=== PATIENT | male | born 1945 | race Caucasian/White ===

== ENCOUNTER 2019-01-20 09:52 | Inpatient (IN) | payer OTHER ==
[2019-01-20 10:20] LABS: AADO2 Venous 90.9 mmHg; MODE ROOM AIR; MetHgb Venous 0.7 %; Site VENOUS LINE; Venous COHb 0.4 %; Venous Fraction OxyHgb 29.6 %; Venous Oxygen Sat 29.9 mmHG (55.0-75.0)
[2019-01-20] MEDS: SOD CHLORIDE 0.9% 1,000 ML IV ×3 (10:20→18:40)
[2019-01-20 10:22] LABS: ADD MAN DIFF? NO
[2019-01-20 10:23] LABS: ABNORMAL IP MESSAGE 1; BASOPHIL # 0.1 10^3/ul (0.0-0.1); BASOPHILS % 0.2 % (0.0-2.0); HEMATOCRIT 44.5 % (42.0-52.0); HEMOGLOBIN 14.7 g/dl (14.0-18.0); LYMPHOCYTES # 0.3 10^3/ul (0.8-2.9); LYMPHOCYTES % 1.3 % (15.0-51.0); MEAN CORPUSCULAR HEMOGLOBIN 28.9 pg (29.0-33.0); MEAN CORPUSCULAR VOLUME 87.6 fl (82.0-101.0); MEAN PLATELET VOLUME 12.7 fl (7.4-10.4); MONOCYTE # 0.5 10^3/ul (0.3-0.9); MONOCYTES % 2.4 % (0.0-11.0); NEUTROPHIL # 19.5 10^3/ul (1.6-7.5); NEUTROPHILS % 95.4 % (39.0-77.0); PLATELET COUNT 146 10^3/UL (140-415); POSITIVE DIFF @See below; RED BLOOD COUNT 5.08 10^6/ul (4.70-6.10); RED CELL DISTRIBUTION WIDTH 13.8 % (11.5-14.5)
[2019-01-20 10:23] LABS: WHITE BLOOD COUNT 20.5 10^3/ul (4.8-10.8)
[2019-01-20 10:42] LABS: ANION GAP 23 (5-13); BLOOD UREA NITROGEN 46 mg/dl (7-20); CALCIUM 8.8 mg/dl (8.4-10.2); CARBON DIOXIDE 12 mmol/L (21-31); CHLORIDE 99 mmol/L (97-110); CREATININE 2.94 mg/dl (0.61-1.24); MAGNESIUM 2.3 mg/dl (1.7-2.5); PHOSPHORUS 6.4 mg/dl (2.5-4.9); POTASSIUM 5.3 mmol/L (3.5-5.1); SODIUM 134 mmol/L (135-144)
[2019-01-20 10:55] LABS: GLUCOSE 840 mg/dl (70-220)
[2019-01-20] MEDS ORDERED: D10/0.45% NACL + KCL 40 MEQ 1,000 ML IV (11:03)
[2019-01-20] MEDS ORDERED: NS + KCL 40 MEQ 1,000 ML IV (11:03)
[2019-01-20] MEDS ORDERED: DEXTROSE 10%/0.45% NACL 1,000 ML IV (11:03)
[2019-01-20 11:17] LABS: HEMOGLOBIN A1C 10.5 % (0-5.9)
[2019-01-20 11:22] LABS: ADD UMIC YES; UR ASCORBIC ACID NEGATIVE (NEGATIVE); UR BACTERIA FEW /HPF (NONE SEEN); UR BILIRUBIN (Dip) NEGATIVE (NEGATIVE); UR BLOOD (Dip) 2+ mg/dL (NEGATIVE); UR CLARITY CLOUDY (CLEAR); UR COLOR YELLOW (YELLOW); UR GLUCOSE (Dip) 3+ mg/dL (NEGATIVE); UR GRANULAR CAST FEW /HPF (NONE SEEN); UR KETONES (Dip) 1+ mg/dL (NEGATIVE); UR LEUKOCYTE ESTERASE (Dip) TRACE Leu/ul (NEGATIVE); UR NITRITE (Dip) NEGATIVE (NEGATIVE); UR RBC 1 /HPF (0-5); UR SPECIFIC GRAVITY (Dip) 1.016 (1.003-1.030); UR TOTAL PROTEIN (Dip) 1+ mg/dl (NEGATIVE); UR UROBILINOGEN (Dip) NEGATIVE (NEGATIVE); UR WBC 36 /HPF (0-5)
[2019-01-20] MEDS: LACTATED RINGER'S 1,000 ML IV (11:27)
[2019-01-20] MEDS ORDERED: DEXTROSE 50% 50 ML SYRINGE IV ×2 (11:30)
[2019-01-20] MEDS: INSULIN REGULAR, HUMAN 100 UNIT in SOD CHLORIDE 0.9% 100 ML IV ×2 (13:15→21:59)
[2019-01-20 13:18] LABS: MODE ROOM AIR; MetHgb Venous 0.1 %; Sample Type Blood venous; Site VENOUS LINE; Venous COHb 0.5 %; Venous Fraction OxyHgb 79.5 %; Venous Total Hemglobin 13.5 g/dl
[2019-01-20] MEDS: NS + KCL 30 MEQ 1,000 ML IV ×2 (13:20→20:42)
[2019-01-20 13:54] LABS: ANION GAP 19 (5-13); BLOOD UREA NITROGEN 49 mg/dl (7-20); CALCIUM 8.5 mg/dl (8.4-10.2); CARBON DIOXIDE 14 mmol/L (21-31); CHLORIDE 104 mmol/L (97-110); CREATININE 2.69 mg/dl (0.61-1.24); MAGNESIUM 2.3 mg/dl (1.7-2.5); POTASSIUM 5.8 mmol/L (3.5-5.1); SODIUM 137 mmol/L (135-144)
[2019-01-20 14:04] LABS: GLUCOSE 806 mg/dl (70-220)
[2019-01-20] MEDS ORDERED: NACL 0.9% 3 ML SYG IV (14:30)
[2019-01-20] MEDS ORDERED: ONDANSETRON 4 MG INJ IV (14:30)
[2019-01-20] MEDS ORDERED: ALBUTEROL HFA 8 GM INHALER INH (14:30)
[2019-01-20] MEDS ORDERED: ACETAMINOPHEN 325 MG TAB PO (14:30)
[2019-01-20] MEDS: METOPROLOL 5 MG INJ IV ×2 (14:32→21:01)
[2019-01-20 15:25] LABS: MODE NASAL CANNULA; MetHgb Venous 0.5 %; Sample Type Blood venous; Site VENOUS LINE; Venous COHb 0.6 %; Venous Fraction OxyHgb 32.7 %; Venous Oxygen Sat 33.1 mmHG (55.0-75.0); Venous Total Hemglobin 14.3 g/dl
[2019-01-20] MEDS: PIPER-TAZO 3.375 GM IV (PMX) 100 ML IVPB ×2 (15:31→21:51)
[2019-01-20] MEDS: NICOTINE (21 MG/24 HR) PATCH TRANSDERM (15:31)
[2019-01-20 15:55] LABS: ANION GAP 16 (5-13); BLOOD UREA NITROGEN 52 mg/dl (7-20); CALCIUM 8.6 mg/dl (8.4-10.2); CARBON DIOXIDE 19 mmol/L (21-31); CHLORIDE 106 mmol/L (97-110); CREATININE 2.67 mg/dl (0.61-1.24); MAGNESIUM 2.5 mg/dl (1.7-2.5); PHOSPHORUS 4.7 mg/dl (2.5-4.9); POTASSIUM 5.4 mmol/L (3.5-5.1); SODIUM 141 mmol/L (135-144)
[2019-01-20 16:10] LABS: GLUCOSE 685 mg/dl (70-220)
[2019-01-20 19:46] LABS: MODE ROOM AIR; MetHgb Venous 0.2 %; Sample Type Blood venous; Site VENOUS LINE; Venous COHb 1.8 %; Venous Fraction OxyHgb 64.7 %; Venous Total Hemglobin 15.4 g/dl
[2019-01-20 20:01] LABS: ANION GAP 9 (5-13); BLOOD UREA NITROGEN 55 mg/dl (7-20); CALCIUM 8.5 mg/dl (8.4-10.2); CARBON DIOXIDE 21 mmol/L (21-31); CHLORIDE 112 mmol/L (97-110); CREATININE 2.55 mg/dl (0.61-1.24); GLUCOSE 383 mg/dl (70-220); MAGNESIUM 2.6 mg/dl (1.7-2.5); PHOSPHORUS 3.1 mg/dl (2.5-4.9); POTASSIUM 4.3 mmol/L (3.5-5.1); SODIUM 142 mmol/L (135-144)
[2019-01-20 20:41] LABS: ADD UMIC YES; UR ASCORBIC ACID NEGATIVE (NEGATIVE); UR BACTERIA FEW /HPF (NONE SEEN); UR BILIRUBIN (Dip) NEGATIVE (NEGATIVE); UR BLOOD (Dip) 2+ mg/dL (NEGATIVE); UR CLARITY CLOUDY (CLEAR); UR COLOR YELLOW (YELLOW); UR GLUCOSE (Dip) 3+ mg/dL (NEGATIVE); UR GRANULAR CAST FEW /HPF (NONE SEEN); UR KETONES (Dip) NEGATIVE (NEGATIVE); UR LEUKOCYTE ESTERASE (Dip) 3+ Leu/ul (NEGATIVE); UR NITRITE (Dip) NEGATIVE (NEGATIVE); UR RBC 16 /HPF (0-5); UR SPECIFIC GRAVITY (Dip) 1.014 (1.003-1.030); UR TOTAL PROTEIN (Dip) 1+ mg/dl (NEGATIVE); UR UROBILINOGEN (Dip) NEGATIVE (NEGATIVE); UR WBC > 182 /HPF (0-5)
[2019-01-20] MEDS: D10/0.45% NACL + KCL 30 MEQ 1,000 ML IV (20:42)
[2019-01-20] MEDS: TAMSULOSIN (SR) 0.4 MG CAP PO (20:58)
[2019-01-20] MEDS: ATORVASTATIN 40 MG TAB PO (20:58)
[2019-01-20] MEDS: CHOLECALCIFEROL 1,000 UNIT TAB PO (20:58)
[2019-01-20] MEDS: APIXABAN 5 MG TABLET PO (20:58)
[2019-01-20 23:24] LABS: MODE ROOM AIR; MetHgb Venous 0.2 %; Sample Type Blood venous; Site VENOUS LINE; Venous COHb 0.6 %; Venous Fraction OxyHgb 88.4 %; Venous Oxygen Sat 89.1 mmHG (55.0-75.0); Venous Total Hemglobin 14.5 g/dl
[2019-01-20 23:51] LABS: ANION GAP 10 (5-13); BLOOD UREA NITROGEN 51 mg/dl (7-20); CALCIUM 8.5 mg/dl (8.4-10.2); CARBON DIOXIDE 21 mmol/L (21-31); CHLORIDE 114 mmol/L (97-110); CREATININE 2.37 mg/dl (0.61-1.24); GLUCOSE 260 mg/dl (70-220); MAGNESIUM 2.5 mg/dl (1.7-2.5); PHOSPHORUS 2.7 mg/dl (2.5-4.9); POTASSIUM 4.1 mmol/L (3.5-5.1); SODIUM 145 mmol/L (135-144)
[2019-01-21] MEDS ORDERED: DEXTROSE 50% 50 ML SYRINGE IV ×2 (00:30)
[2019-01-21] MEDS ORDERED: GLUCOSE GEL 15 GRAM TUBE BUCCAL (00:30)
[2019-01-21] MEDS ORDERED: GLUCOSE GEL 15 GRAM TUBE PO ×2 (00:30)
[2019-01-21] MEDS ORDERED: GLUCAGON 1 MG INJ IM (00:30)
[2019-01-21] MEDS: DILTIAZEM 25 MG INJ IV ×2 (00:36→20:23)
[2019-01-21] MEDS: INSULIN GLARGINE [LANTus] (100 UNITS/ML) SYG SC ×2 (00:37→20:36)
[2019-01-21] MEDS: METOPROLOL 5 MG INJ IV ×2 (03:16→19:34)
[2019-01-21 03:48] LABS: ADD MAN DIFF? NO
[2019-01-21 03:54] LABS: Allen Test ACCEPTAB; MODE ROOM AIR; MetHgb Venous 0.1 %; Sample Type Blood venous; Site VENOUS LINE; Venous COHb 1.5 %; Venous Fraction OxyHgb 60.7 %; Venous Oxygen Sat 61.7 mmHG (55.0-75.0); Venous Total Hemglobin 15.5 g/dl
[2019-01-21 04:11] LABS: ALANINE AMINOTRANSFERASE 25 IU/L (13-69); ALBUMIN 3.3 g/dl (3.3-4.9); ALBUMIN/GLOBULIN RATIO 1.06; ALKALINE PHOSPHATASE 85 IU/L (42-121); ANION GAP 11 (5-13); ASPARTATE AMINO TRANSFERASE 24 IU/L (15-46); BILIRUBIN,INDIRECT 0.6 mg/dl (0-1.1); BILIRUBIN,TOTAL 0.6 mg/dl (0.2-1.3); BLOOD UREA NITROGEN 51 mg/dl (7-20); CALCIUM 8.5 mg/dl (8.4-10.2); CARBON DIOXIDE 17 mmol/L (21-31); CHLORIDE 118 mmol/L (97-110); CREATININE 2.36 mg/dl (0.61-1.24); GLUCOSE 217 mg/dl (70-220); POTASSIUM 4.4 mmol/L (3.5-5.1); SODIUM 146 mmol/L (135-144); TOTAL PROTEIN 6.4 g/dl (6.1-8.1)
[2019-01-21 04:12] LABS: ANION GAP 10 (5-13); BLOOD UREA NITROGEN 50 mg/dl (7-20); CALCIUM 8.3 mg/dl (8.4-10.2); CARBON DIOXIDE 17 mmol/L (21-31); CHLORIDE 119 mmol/L (97-110); CREATININE 2.22 mg/dl (0.61-1.24); GLUCOSE 211 mg/dl (70-220); MAGNESIUM 2.5 mg/dl (1.7-2.5); PHOSPHORUS 2.3 mg/dl (2.5-4.9); POTASSIUM 4.6 mmol/L (3.5-5.1); SODIUM 146 mmol/L (135-144)
[2019-01-21 04:29] LABS: ABNORMAL IP MESSAGE 1; BASOPHILS % 0.3 % (0.0-2.0); EOSINOPHILS % 0.2 % (0.0-7.0); HEMATOCRIT 43.9 % (42.0-52.0); HEMOGLOBIN 14.6 g/dl (14.0-18.0); LYMPHOCYTES # 0.5 10^3/ul (0.8-2.9); LYMPHOCYTES % 3.7 % (15.0-51.0); MEAN CORPUSCULAR HGB CONC 33.3 g/dl (32.0-37.0); MEAN CORPUSCULAR VOLUME 87.1 fl (82.0-101.0); MEAN PLATELET VOLUME 12.3 fl (7.4-10.4); MONOCYTE # 0.8 10^3/ul (0.3-0.9); MONOCYTES % 6.1 % (0.0-11.0); NEUTROPHIL # 11.8 10^3/ul (1.6-7.5); NEUTROPHILS % 89.2 % (39.0-77.0); PLATELET COUNT 127 10^3/UL (140-415); POSITIVE DIFF @See below; RED BLOOD COUNT 5.04 10^6/ul (4.70-6.10); RED CELL DISTRIBUTION WIDTH 14.2 % (11.5-14.5)
[2019-01-21 04:29] LABS: WHITE BLOOD COUNT 13.2 10^3/ul (4.8-10.8)
[2019-01-21 04:41] LABS: HEMOGLOBIN A1C 10.7 % (0-5.9)
[2019-01-21] MEDS: PIPER-TAZO 3.375 GM IV (PMX) 100 ML IVPB ×3 (05:11→22:14)
[2019-01-21] MEDS: METOPROLOL 100 MG TAB PO ×2 (05:12→09:40)
[2019-01-21] MEDS: INSULIN ASPART [NOVOLOG] 3 ML PEN SC ×7 (05:40→21:39)
[2019-01-21] MEDS: ACCU-CHEK XX (06:33)
[2019-01-21] MEDS: AMIODARONE 900 MG in DEXTROSE 5% 482 ML IV ×2 (06:44→23:16)
[2019-01-21] MEDS: NICOTINE (21 MG/24 HR) PATCH TRANSDERM (09:00)
[2019-01-21] MEDS: APIXABAN 5 MG TABLET PO ×2 (09:41→20:24)
[2019-01-21] MEDS: LOPERAMIDE 2 MG CAP PO ×2 (12:18→13:20)
[2019-01-21] MEDS ORDERED: VANCOMYCIN IV PER PHARMACY XX (16:00)
[2019-01-21] MEDS: VANCOMYCIN HCL 2 GM in SOD CHLORIDE 0.9% 500 ML IVPB (17:10)
[2019-01-21] MEDS: CHOLECALCIFEROL 1,000 UNIT TAB PO (20:24)
[2019-01-21] MEDS: TAMSULOSIN (SR) 0.4 MG CAP PO (20:24)
[2019-01-21] MEDS: ATORVASTATIN 40 MG TAB PO (20:24)
[2019-01-22] MEDS: ACCU-CHEK XX (02:48)
[2019-01-22] MEDS: PIPER-TAZO 3.375 GM IV (PMX) 100 ML IVPB ×3 (05:39→21:37)
[2019-01-22 07:46] LABS: CREATININE 2.22 mg/dl (0.61-1.24)
[2019-01-22 07:46] LABS: BLOOD UREA NITROGEN 49 mg/dl (7-20)
[2019-01-22] MEDS: INSULIN ASPART [NOVOLOG] 3 ML PEN SC ×7 (08:25→20:14)
[2019-01-22] MEDS: NICOTINE (21 MG/24 HR) PATCH TRANSDERM (08:32)
[2019-01-22] MEDS: APIXABAN 5 MG TABLET PO ×2 (08:32→20:10)
[2019-01-22] MEDS: METOPROLOL 100 MG TAB PO ×2 (09:25→21:37)
[2019-01-22 10:34] LABS: ADD MAN DIFF? NO
[2019-01-22 10:35] LABS: WHITE BLOOD COUNT 14.8 10^3/ul (4.8-10.8)
[2019-01-22 10:35] LABS: ABNORMAL IP MESSAGE 1; BASOPHILS % 0.2 % (0.0-2.0); EOSINOPHILS % 0.1 % (0.0-7.0); HEMATOCRIT 40.6 % (42.0-52.0); HEMOGLOBIN 13.6 g/dl (14.0-18.0); LYMPHOCYTES # 0.5 10^3/ul (0.8-2.9); MEAN CORPUSCULAR HEMOGLOBIN 28.9 pg (29.0-33.0); MEAN CORPUSCULAR HGB CONC 33.5 g/dl (32.0-37.0); MEAN CORPUSCULAR VOLUME 86.4 fl (82.0-101.0); MEAN PLATELET VOLUME 11.8 fl (7.4-10.4); MONOCYTE # 0.9 10^3/ul (0.3-0.9); MONOCYTES % 5.8 % (0.0-11.0); NEUTROPHIL # 13.3 10^3/ul (1.6-7.5); NEUTROPHILS % 90.2 % (39.0-77.0); PLATELET COUNT 92 10^3/UL (140-415); POSITIVE DIFF @See below; RED CELL DISTRIBUTION WIDTH 14.4 % (11.5-14.5)
[2019-01-22 10:53] LABS: ALANINE AMINOTRANSFERASE 35 IU/L (13-69); ALBUMIN 2.8 g/dl (3.3-4.9); ALBUMIN/GLOBULIN RATIO 1.03; ALKALINE PHOSPHATASE 88 IU/L (42-121); ANION GAP 10 (5-13); ASPARTATE AMINO TRANSFERASE 28 IU/L (15-46); BLOOD UREA NITROGEN 48 mg/dl (7-20); CALCIUM 8.4 mg/dl (8.4-10.2); CARBON DIOXIDE 21 mmol/L (21-31); CHLORIDE 107 mmol/L (97-110); GLUCOSE 339 mg/dl (70-220); MAGNESIUM 2.2 mg/dl (1.7-2.5); PHOSPHORUS 3.1 mg/dl (2.5-4.9); POTASSIUM 4.3 mmol/L (3.5-5.1); SODIUM 138 mmol/L (135-144); TOTAL PROTEIN 5.5 g/dl (6.1-8.1)
[2019-01-22] MEDS: DILTIAZEM (CD) 180 MG CAP PO ×2 (13:29→16:53)
[2019-01-22] MEDS: METOPROLOL 5 MG INJ IV (15:40)
[2019-01-22] MEDS: CHOLECALCIFEROL 1,000 UNIT TAB PO (20:09)
[2019-01-22] MEDS: ATORVASTATIN 40 MG TAB PO (20:10)
[2019-01-22] MEDS: TAMSULOSIN (SR) 0.4 MG CAP PO (20:10)
[2019-01-22] MEDS: INSULIN GLARGINE [LANTus] (100 UNITS/ML) SYG SC (20:14)
[2019-01-23] MEDS: LOPERAMIDE 2 MG CAP PO ×2 (00:22→20:53)
[2019-01-23] MEDS: ACCU-CHEK XX (03:00)
[2019-01-23] MEDS: PIPER-TAZO 3.375 GM IV (PMX) 100 ML IVPB ×3 (05:07→23:39)
[2019-01-23] MEDS: VANCOMYCIN HCL 1.25 GM in SOD CHLORIDE 0.9% 250 ML IVPB (05:09)
[2019-01-23 05:43] LABS: HEMATOCRIT 40.3 % (42.0-52.0); HEMOGLOBIN 13.8 g/dl (14.0-18.0); MEAN CORPUSCULAR HEMOGLOBIN 28.6 pg (29.0-33.0); MEAN CORPUSCULAR HGB CONC 34.2 g/dl (32.0-37.0); MEAN CORPUSCULAR VOLUME 83.6 fl (82.0-101.0); MEAN PLATELET VOLUME 12.5 fl (7.4-10.4); PLATELET COUNT 111 10^3/UL (140-415); RED BLOOD COUNT 4.82 10^6/ul (4.70-6.10); RED CELL DISTRIBUTION WIDTH 14.5 % (11.5-14.5)
[2019-01-23 05:43] LABS: WHITE BLOOD COUNT 15.8 10^3/ul (4.8-10.8)
[2019-01-23 05:44] LABS: POSITIVE DIFF @See below
[2019-01-23 06:07] LABS: ANION GAP 10 (5-13); BLOOD UREA NITROGEN 46 mg/dl (7-20); CALCIUM 8.4 mg/dl (8.4-10.2); CARBON DIOXIDE 18 mmol/L (21-31); CHLORIDE 112 mmol/L (97-110); CREATININE 2.37 mg/dl (0.61-1.24); GLUCOSE 235 mg/dl (70-220); MAGNESIUM 2.3 mg/dl (1.7-2.5); PHOSPHORUS 3.6 mg/dl (2.5-4.9); POTASSIUM 4.2 mmol/L (3.5-5.1); SODIUM 140 mmol/L (135-144)
[2019-01-23 06:16] LABS: ADD MAN DIFF? YES
[2019-01-23] MEDS: APIXABAN 5 MG TABLET PO ×2 (08:09→20:52)
[2019-01-23] MEDS: METOPROLOL (XL) 100 MG TAB PO (08:10)
[2019-01-23] MEDS: DILTIAZEM (CD) 180 MG CAP PO (08:10)
[2019-01-23] MEDS: NICOTINE (21 MG/24 HR) PATCH TRANSDERM (08:14)
[2019-01-23] MEDS: INSULIN ASPART [NOVOLOG] 3 ML PEN SC ×7 (08:28→20:56)
[2019-01-23 11:23] LABS: ANISOCYTOSIS 2+ (0-0); BAND NEUTROPHILS #M 0.7 10^3/ul (0.0-0.6); BAND NEUTROPHILS % (M) 5 % (0-4); BURR CELLS 3+ (0-0); GIANT THROMBO% (M) 2 % (0-0); LYMPHOCYTES #M 0.7 10^3/ul (0.8-2.9); LYMPHOCYTES % (M) 5 % (15-51); MICROCYTOSIS 1+ (0-0); MONOCYTE #M 0.7 10^3/ul (0.3-0.9); MONOCYTES % (M) 5 % (0-11); PLATELET ESTIMATE DECREASED; POIKILOCYTOSIS 3+ (0-0); POLYCHROMASIA 3+ (0-0); REACTIVE LYMPHOCYTES #M 0.6 10^3/ul (0.0-0.0); REACTIVE LYMPHOCYTES% (M) 4 % (0-0); SEG NEUT #M 12.9 10^3/ul (1.6-7.5); SEGMENTED NEUTROPHILS (M) % 81 % (39-77); SMUDGE%M 4 % (0-0); TEAR DROP CELLS 1+ (0-0)
[2019-01-23] MEDS: TAMSULOSIN (SR) 0.4 MG CAP PO (20:52)
[2019-01-23] MEDS: CHOLECALCIFEROL 1,000 UNIT TAB PO (20:53)
[2019-01-23] MEDS: ATORVASTATIN 40 MG TAB PO (20:53)
[2019-01-23] MEDS: INSULIN GLARGINE [LANTus] (100 UNITS/ML) SYG SC (20:55)
[2019-01-23] MEDS ORDERED: ACETAMINOPHEN 650 MG SUPP PR (21:49)
[2019-01-23] MEDS ORDERED: DILTIAZEM 25 MG INJ (21:50)
[2019-01-23] MEDS ORDERED: MAGNESIUM SULFATE 2 GM/50 ML 50 ML (21:54)
[2019-01-23] MEDS: SOD CHLORIDE 0.9% 1,000 ML IV (22:04)
[2019-01-23] MEDS: MAGNESIUM SULFATE 2 GM/50 ML 50 ML IVPB (22:05)
[2019-01-23] MEDS: LORAZEPAM 2 MG INJ IV (22:06)
[2019-01-23] MEDS: ACETAMINOPHEN 650 MG SUPP PR (22:30)
[2019-01-23] MEDS: DILTIAZEM 25 MG INJ IV (22:30)
[2019-01-24] MEDS: ACCU-CHEK XX (01:25)
[2019-01-24] MEDS: LOPERAMIDE 2 MG CAP PO (04:37)
[2019-01-24] MEDS: PIPER-TAZO 3.375 GM IV (PMX) 100 ML IVPB ×2 (05:32→13:15)
[2019-01-24 06:14] LABS: WHITE BLOOD COUNT 21.7 10^3/ul (4.8-10.8)
[2019-01-24 06:14] LABS: HEMATOCRIT 36.6 % (42.0-52.0); HEMOGLOBIN 12.6 g/dl (14.0-18.0); MEAN CORPUSCULAR HEMOGLOBIN 28.6 pg (29.0-33.0); MEAN CORPUSCULAR HGB CONC 34.4 g/dl (32.0-37.0); MEAN CORPUSCULAR VOLUME 83.2 fl (82.0-101.0); MEAN PLATELET VOLUME 12.2 fl (7.4-10.4); PLATELET COUNT 113 10^3/UL (140-415); POSITIVE DIFF @See below
[2019-01-24 06:22] LABS: ADD MAN DIFF? YES
[2019-01-24 06:34] LABS: ANION GAP 8 (5-13); BLOOD UREA NITROGEN 42 mg/dl (7-20); CALCIUM 7.8 mg/dl (8.4-10.2); CARBON DIOXIDE 19 mmol/L (21-31); CHLORIDE 112 mmol/L (97-110); CREATININE 2.53 mg/dl (0.61-1.24); GLUCOSE 129 mg/dl (70-220); SODIUM 139 mmol/L (135-144)
[2019-01-24] MEDS: INSULIN ASPART [NOVOLOG] 3 ML PEN SC ×7 (07:54→20:29)
[2019-01-24] MEDS: DILTIAZEM (CD) 180 MG CAP PO ×2 (09:00→11:57)
[2019-01-24] MEDS: METOPROLOL (XL) 100 MG TAB PO ×2 (09:00→11:56)
[2019-01-24] MEDS: APIXABAN 5 MG TABLET PO ×2 (09:45→20:12)
[2019-01-24] MEDS: NICOTINE (21 MG/24 HR) PATCH TRANSDERM (09:46)
[2019-01-24 11:50] LABS: BAND NEUTROPHILS #M 1.7 10^3/ul (0.0-0.6); BAND NEUTROPHILS % (M) 8 % (0-4); BASOPHIL #M 0.4 10^3/ul (0.0-0.0); BASOPHILS % (M) 2 % (0-2); BURR CELLS 1+ (0-0); GIANT THROMBO% (M) 6 % (0-0); LYMPHOCYTES #M 0.6 10^3/ul (0.8-2.9); LYMPHOCYTES % (M) 3 % (15-51); MONOCYTE #M 0.8 10^3/ul (0.3-0.9); MONOCYTES % (M) 4 % (0-11); PLATELET ESTIMATE DECREASED; POIKILOCYTOSIS 1+ (0-0); PROMYELOCYTES #M 0.2 10^3/ul (0-0); PROMYELOCYTES % (M) 1 % (0-0); REACTIVE LYMPHOCYTES #M 0.2 10^3/ul (0.0-0.0); REACTIVE LYMPHOCYTES% (M) 1 % (0-0); SEG NEUT #M 17.9 10^3/ul (1.6-7.5); SEGMENTED NEUTROPHILS (M) % 81 % (39-77); SMUDGE%M 12 % (0-0); TOXIC GRANULATION 1+ (0-0)
[2019-01-24] MEDS: SOD CHLORIDE 0.9% 1,000 ML IV (12:12)
[2019-01-24] MEDS: VANCOMYCIN HCL 1.25 GM in SOD CHLORIDE 0.9% 250 ML IVPB (16:37)
[2019-01-24] MEDS: CEFTRIAXONE 1 GM/50 ML (PMX) 50 ML IVPB (16:49)
[2019-01-24] MEDS: CEFTRIAXONE 1 GM/NS 50 ML IVPB (17:44)
[2019-01-24] MEDS: TAMSULOSIN (SR) 0.4 MG CAP PO (20:12)
[2019-01-24] MEDS: ATORVASTATIN 40 MG TAB PO (20:12)
[2019-01-24] MEDS: CHOLECALCIFEROL 1,000 UNIT TAB PO (20:12)
[2019-01-24] MEDS: INSULIN GLARGINE [LANTus] (100 UNITS/ML) SYG SC (20:30)
[2019-01-25] MEDS: SOD CHLORIDE 0.9% 1,000 ML IV (00:50)
[2019-01-25] MEDS: ACCU-CHEK XX ×2 (01:22→23:10)
[2019-01-25 06:15] LABS: ADD MAN DIFF? NO; HAAIG REFLEX REFLEX FILED
[2019-01-25 06:25] LABS: WHITE BLOOD COUNT 15.1 10^3/ul (4.8-10.8)
[2019-01-25 06:25] LABS: BASOPHIL # 0.1 10^3/ul (0.0-0.1); BASOPHILS % 0.7 % (0.0-2.0); EOSINOPHILS # 0.2 10^3/ul (0.0-0.5); EOSINOPHILS % 1.3 % (0.0-7.0); HEMATOCRIT 40.9 % (42.0-52.0); HEMOGLOBIN 14.2 g/dl (14.0-18.0); LYMPHOCYTES # 0.8 10^3/ul (0.8-2.9); LYMPHOCYTES % 5.4 % (15.0-51.0); MEAN CORPUSCULAR HEMOGLOBIN 28.7 pg (29.0-33.0); MEAN CORPUSCULAR HGB CONC 34.7 g/dl (32.0-37.0); MEAN CORPUSCULAR VOLUME 82.8 fl (82.0-101.0); MEAN PLATELET VOLUME 11.7 fl (7.4-10.4); MONOCYTES % 6.5 % (0.0-11.0); NEUTROPHIL # 12.6 10^3/ul (1.6-7.5); NEUTROPHILS % 83.1 % (39.0-77.0); PLATELET COUNT 137 10^3/UL (140-415); RED BLOOD COUNT 4.94 10^6/ul (4.70-6.10); RED CELL DISTRIBUTION WIDTH 14.1 % (11.5-14.5)
[2019-01-25 06:43] LABS: MAGNESIUM 2.2 mg/dl (1.7-2.5)
[2019-01-25 06:43] LABS: PHOSPHORUS 4.4 mg/dl (2.5-4.9)
[2019-01-25 06:54] LABS: ALBUMIN/GLOBULIN RATIO 0.83; ANION GAP 12 (5-13); BILIRUBIN,TOTAL 0.6 mg/dl (0.2-1.3)
[2019-01-25 06:57] LABS: BLOOD UREA NITROGEN 34 mg/dl (7-20); CARBON DIOXIDE 17 mmol/L (21-31); CHLORIDE 113 mmol/L (97-110); CREATININE 2.38 mg/dl (0.61-1.24); GLUCOSE 148 mg/dl (70-220); POTASSIUM 3.7 mmol/L (3.5-5.1); SODIUM 142 mmol/L (135-144)
[2019-01-25 06:58] LABS: ALANINE AMINOTRANSFERASE 50 IU/L (13-69); ALBUMIN 2.5 g/dl (3.3-4.9); ALKALINE PHOSPHATASE 122 IU/L (42-121); ASPARTATE AMINO TRANSFERASE 34 IU/L (15-46); BILIRUBIN,INDIRECT 0.6 mg/dl (0-1.1); CALCIUM 8.1 mg/dl (8.4-10.2); TOTAL PROTEIN 5.5 g/dl (6.1-8.1)
[2019-01-25 07:19] LABS: HEPATITIS B SURFACE ANTIGEN NEGATIVE (NEGATIVE)
[2019-01-25 07:29] LABS: HIV 1&2 ANTIBODY NEGATIVE (NEGATIVE)
[2019-01-25 07:38] LABS: HEPATITIS B CORE ANTIBODY NEGATIVE (NEGATIVE); HEPATITIS C VIRAL ANTIBODY NEGATIVE (NEGATIVE)
[2019-01-25] MEDS: INSULIN ASPART [NOVOLOG] 3 ML PEN SC ×7 (07:51→21:00)
[2019-01-25] MEDS: NICOTINE (21 MG/24 HR) PATCH TRANSDERM ×2 (08:28→08:58)
[2019-01-25] MEDS: METOPROLOL (XL) 100 MG TAB PO (08:29)
[2019-01-25] MEDS: APIXABAN 5 MG TABLET PO ×2 (08:29→21:40)
[2019-01-25] MEDS: DILTIAZEM (CD) 180 MG CAP PO (08:29)
[2019-01-25 13:00] LABS: CREATININE,URINE RANDOM 26.12 mg/dl (20-370)
[2019-01-25 13:05] LABS: ADD UMIC YES; UR ASCORBIC ACID NEGATIVE (NEGATIVE); UR BACTERIA FEW /HPF (NONE SEEN); UR BILIRUBIN (Dip) NEGATIVE (NEGATIVE); UR BLOOD (Dip) 3+ mg/dL (NEGATIVE); UR BUDDING YEAST MANY /HPF (NONE SEEN); UR CLARITY CLOUDY (CLEAR); UR COLOR YELLOW (YELLOW); UR GLUCOSE (Dip) 1+ mg/dL (NEGATIVE); UR HYPHAE YEAST FEW /HPF (NONE SEEN); UR KETONES (Dip) NEGATIVE (NEGATIVE); UR LEUKOCYTE ESTERASE (Dip) 2+ Leu/ul (NEGATIVE); UR NITRITE (Dip) NEGATIVE (NEGATIVE); UR RBC 15 /HPF (0-5); UR SPECIFIC GRAVITY (Dip) 1.004 (1.003-1.030); UR TOTAL PROTEIN (Dip) 1+ mg/dl (NEGATIVE); UR UROBILINOGEN (Dip) NEGATIVE (NEGATIVE); UR WBC 52 /HPF (0-5)
[2019-01-25 13:11] LABS: POTASSIUM,URINE RANDOM < 9.7 mmol/L (25-125)
[2019-01-25 13:23] LABS: OSMOLALITY 295 mOsm/kg (280-295)
[2019-01-25 13:49] LABS: OSMOLALITY,URINE 162 mOsm/kg (250-1200)
[2019-01-25 14:42] LABS: URIC ACID 5.4 mg/dl (3.1-7.9)
[2019-01-25] MEDS: CEFTRIAXONE 2 GM/50 ML (PMX) 50 ML IVPB (17:17)
[2019-01-25 17:43] LABS: CREATININE,URINE RANDOM 30.63 mg/dl (20-370)
[2019-01-25 18:00] LABS: OSMOLALITY,URINE 167 mOsm/kg (250-1200)
[2019-01-25] MEDS: ATORVASTATIN 40 MG TAB PO (21:40)
[2019-01-25] MEDS: CHOLECALCIFEROL 1,000 UNIT TAB PO (21:40)
[2019-01-25] MEDS: TAMSULOSIN (SR) 0.4 MG CAP PO (21:40)
[2019-01-25] MEDS: INSULIN GLARGINE [LANTus] (100 UNITS/ML) SYG SC (21:57)
[2019-01-26 05:40] LABS: ADD MAN DIFF? NO
[2019-01-26 05:46] LABS: WHITE BLOOD COUNT 15.5 10^3/ul (4.8-10.8)
[2019-01-26 05:46] LABS: BASOPHIL # 0.1 10^3/ul (0.0-0.1); BASOPHILS % 0.5 % (0.0-2.0); EOSINOPHILS # 0.2 10^3/ul (0.0-0.5); EOSINOPHILS % 1.1 % (0.0-7.0); HEMATOCRIT 37.9 % (42.0-52.0); HEMOGLOBIN 13.1 g/dl (14.0-18.0); LYMPHOCYTES # 1.1 10^3/ul (0.8-2.9); LYMPHOCYTES % 7.2 % (15.0-51.0); MEAN CORPUSCULAR HEMOGLOBIN 28.5 pg (29.0-33.0); MEAN CORPUSCULAR HGB CONC 34.6 g/dl (32.0-37.0); MEAN CORPUSCULAR VOLUME 82.6 fl (82.0-101.0); MONOCYTE # 1.1 10^3/ul (0.3-0.9); MONOCYTES % 6.8 % (0.0-11.0); NEUTROPHIL # 12.5 10^3/ul (1.6-7.5); NEUTROPHILS % 80.5 % (39.0-77.0); PLATELET COUNT 161 10^3/UL (140-415); RED BLOOD COUNT 4.59 10^6/ul (4.70-6.10); RED CELL DISTRIBUTION WIDTH 14.5 % (11.5-14.5)
[2019-01-26 06:25] LABS: ALANINE AMINOTRANSFERASE 36 IU/L (13-69); ALBUMIN 2.7 g/dl (3.3-4.9); ALKALINE PHOSPHATASE 117 IU/L (42-121); ANION GAP 9 (5-13); ASPARTATE AMINO TRANSFERASE 28 IU/L (15-46); BILIRUBIN,INDIRECT 0.4 mg/dl (0-1.1); BILIRUBIN,TOTAL 0.4 mg/dl (0.2-1.3); BLOOD UREA NITROGEN 34 mg/dl (7-20); CALCIUM 8.3 mg/dl (8.4-10.2); CARBON DIOXIDE 21 mmol/L (21-31); CHLORIDE 112 mmol/L (97-110); CREATININE 2.56 mg/dl (0.61-1.24); GLUCOSE 153 mg/dl (70-220); PHOSPHORUS 4.5 mg/dl (2.5-4.9); POTASSIUM 3.7 mmol/L (3.5-5.1); SODIUM 142 mmol/L (135-144); TOTAL PROTEIN 5.7 g/dl (6.1-8.1)
[2019-01-26] MEDS: DILTIAZEM (CD) 180 MG CAP PO (08:18)
[2019-01-26] MEDS: METOPROLOL (XL) 100 MG TAB PO (08:18)
[2019-01-26] MEDS: APIXABAN 5 MG TABLET PO ×2 (08:18→20:35)
[2019-01-26] MEDS: NICOTINE (21 MG/24 HR) PATCH TRANSDERM (08:19)
[2019-01-26] MEDS: INSULIN ASPART [NOVOLOG] 3 ML PEN SC ×7 (08:28→20:53)
[2019-01-26] MEDS: CEFTRIAXONE 2 GM/50 ML (PMX) 50 ML IVPB ×2 (17:18→20:37)
[2019-01-26] MEDS: ATORVASTATIN 40 MG TAB PO (20:35)
[2019-01-26] MEDS: CHOLECALCIFEROL 1,000 UNIT TAB PO (20:35)
[2019-01-26] MEDS: TAMSULOSIN (SR) 0.4 MG CAP PO (20:35)
[2019-01-26] MEDS: INSULIN GLARGINE [LANTus] (100 UNITS/ML) SYG SC (20:53)
[2019-01-27] MEDS: ACCU-CHEK XX ×2 (02:43→05:20)
[2019-01-27] MEDS: INSULIN ASPART [NOVOLOG] 3 ML PEN SC ×8 (03:19→20:40)
[2019-01-27 05:51] LABS: ADD MAN DIFF? NO
[2019-01-27 06:06] LABS: WHITE BLOOD COUNT 14.5 10^3/ul (4.8-10.8)
[2019-01-27 06:06] LABS: BASOPHIL # 0.1 10^3/ul (0.0-0.1); BASOPHILS % 0.8 % (0.0-2.0); EOSINOPHILS # 0.2 10^3/ul (0.0-0.5); EOSINOPHILS % 1.7 % (0.0-7.0); HEMATOCRIT 37.6 % (42.0-52.0); HEMOGLOBIN 12.9 g/dl (14.0-18.0); LYMPHOCYTES # 1.1 10^3/ul (0.8-2.9); LYMPHOCYTES % 7.8 % (15.0-51.0); MEAN CORPUSCULAR HEMOGLOBIN 28.5 pg (29.0-33.0); MEAN CORPUSCULAR HGB CONC 34.3 g/dl (32.0-37.0); MEAN CORPUSCULAR VOLUME 83.2 fl (82.0-101.0); MEAN PLATELET VOLUME 11.2 fl (7.4-10.4); MONOCYTE # 1.1 10^3/ul (0.3-0.9); MONOCYTES % 7.3 % (0.0-11.0); NEUTROPHIL # 11.3 10^3/ul (1.6-7.5); NEUTROPHILS % 78.1 % (39.0-77.0); PLATELET COUNT 174 10^3/UL (140-415); RED BLOOD COUNT 4.52 10^6/ul (4.70-6.10)
[2019-01-27 06:48] LABS: ALANINE AMINOTRANSFERASE 31 IU/L (13-69); ALBUMIN 2.6 g/dl (3.3-4.9); ALBUMIN/GLOBULIN RATIO 0.81; ALKALINE PHOSPHATASE 107 IU/L (42-121); ANION GAP 9 (5-13); ASPARTATE AMINO TRANSFERASE 26 IU/L (15-46); BILIRUBIN,INDIRECT 0.4 mg/dl (0-1.1); BILIRUBIN,TOTAL 0.4 mg/dl (0.2-1.3); BLOOD UREA NITROGEN 35 mg/dl (7-20); CALCIUM 8.1 mg/dl (8.4-10.2); CARBON DIOXIDE 21 mmol/L (21-31); CHLORIDE 111 mmol/L (97-110); GLUCOSE 188 mg/dl (70-220); POTASSIUM 3.6 mmol/L (3.5-5.1); SODIUM 141 mmol/L (135-144); TOTAL PROTEIN 5.8 g/dl (6.1-8.1)
[2019-01-27 08:11] LABS: MAGNESIUM 2.1 mg/dl (1.7-2.5)
[2019-01-27 08:11] LABS: PHOSPHORUS 3.6 mg/dl (2.5-4.9)
[2019-01-27] MEDS: DILTIAZEM (CD) 180 MG CAP PO (08:22)
[2019-01-27] MEDS: METOPROLOL (XL) 100 MG TAB PO (08:23)
[2019-01-27] MEDS: NICOTINE (21 MG/24 HR) PATCH TRANSDERM (08:23)
[2019-01-27] MEDS: APIXABAN 5 MG TABLET PO ×2 (08:23→20:40)
[2019-01-27] MEDS: SOD CHLORIDE 0.45% 1,000 ML IV ×2 (10:22→22:47)
[2019-01-27 15:57] LABS: CHLORIDE, RANDOM URINE 23 mmol/L (32-290)
[2019-01-27] MEDS: CHOLECALCIFEROL 1,000 UNIT TAB PO (20:40)
[2019-01-27] MEDS: TAMSULOSIN (SR) 0.4 MG CAP PO (20:40)
[2019-01-27] MEDS: ATORVASTATIN 40 MG TAB PO (20:40)
[2019-01-27] MEDS: INSULIN GLARGINE [LANTus] (100 UNITS/ML) SYG SC (21:47)
[2019-01-28] MEDS: ACCU-CHEK XX (01:09)
[2019-01-28 05:43] LABS: ADD MAN DIFF? NO
[2019-01-28 05:48] LABS: ABNORMAL IP MESSAGE 1; BASOPHIL # 0.1 10^3/ul (0.0-0.1); BASOPHILS % 0.4 % (0.0-2.0); EOSINOPHILS # 0.3 10^3/ul (0.0-0.5); EOSINOPHILS % 1.8 % (0.0-7.0); HEMOGLOBIN 13.3 g/dl (14.0-18.0); LYMPHOCYTES % 6.9 % (15.0-51.0); MEAN CORPUSCULAR HEMOGLOBIN 28.9 pg (29.0-33.0); MEAN CORPUSCULAR VOLUME 82.6 fl (82.0-101.0); MEAN PLATELET VOLUME 10.8 fl (7.4-10.4); MONOCYTES % 6.8 % (0.0-11.0); NEUTROPHIL # 11.2 10^3/ul (1.6-7.5); NEUTROPHILS % 78.6 % (39.0-77.0); PLATELET COUNT 192 10^3/UL (140-415); POSITIVE DIFF @See below; RED CELL DISTRIBUTION WIDTH 13.9 % (11.5-14.5)
[2019-01-28 05:48] LABS: WHITE BLOOD COUNT 14.2 10^3/ul (4.8-10.8)
[2019-01-28 06:22] LABS: ALANINE AMINOTRANSFERASE 38 IU/L (13-69); ALBUMIN 2.6 g/dl (3.3-4.9); ALBUMIN/GLOBULIN RATIO 0.81; ALKALINE PHOSPHATASE 100 IU/L (42-121); ANION GAP 9 (5-13); ASPARTATE AMINO TRANSFERASE 36 IU/L (15-46); BILIRUBIN,INDIRECT 0.4 mg/dl (0-1.1); BILIRUBIN,TOTAL 0.4 mg/dl (0.2-1.3); BLOOD UREA NITROGEN 27 mg/dl (7-20); CALCIUM 8.3 mg/dl (8.4-10.2); CARBON DIOXIDE 21 mmol/L (21-31); CHLORIDE 113 mmol/L (97-110); CREATININE 2.05 mg/dl (0.61-1.24); GLUCOSE 255 mg/dl (70-220); MAGNESIUM 1.9 mg/dl (1.7-2.5); PHOSPHORUS 3.7 mg/dl (2.5-4.9); POTASSIUM 3.9 mmol/L (3.5-5.1); SODIUM 143 mmol/L (135-144); TOTAL PROTEIN 5.8 g/dl (6.1-8.1)
[2019-01-28] MEDS: SOD CHLORIDE 0.45% 1,000 ML IV ×2 (06:31→22:22)
[2019-01-28 06:54] LABS: ANISOCYTOSIS 1+ (0-0); BURR CELLS 1+ (0-0); EOSINOPHILS % (M) 1 % (0-7); LYMPHOCYTES #M 1.4 10^3/ul (0.8-2.9); LYMPHOCYTES % (M) 10 % (15-51); METAMYELOCYTES #M 0.4 10^3/ul (0.0-0.0); METAMYELOCYTES %M 3 % (0-0); MICROCYTOSIS 1+ (0-0); MONOCYTE #M 0.5 10^3/ul (0.3-0.9); MONOCYTES % (M) 4 % (0-11); OVALOCYTES 1+ (0-0); PLATELET ESTIMATE NORMAL; POIKILOCYTOSIS 2+ (0-0); POLYCHROMASIA 3+ (0-0); REACTIVE LYMPHOCYTES #M 0.2 10^3/ul (0.0-0.0); REACTIVE LYMPHOCYTES% (M) 2 % (0-0); SEGMENTED NEUTROPHILS (M) % 80 % (39-77)
[2019-01-28] MEDS: INSULIN ASPART [NOVOLOG] 3 ML PEN SC ×7 (07:46→21:02)
[2019-01-28] MEDS: APIXABAN 5 MG TABLET PO ×2 (08:06→20:08)
[2019-01-28] MEDS: METOPROLOL (XL) 100 MG TAB PO (08:07)
[2019-01-28] MEDS: NICOTINE (21 MG/24 HR) PATCH TRANSDERM (08:08)
[2019-01-28] MEDS: DILTIAZEM (CD) 180 MG CAP PO (08:08)
[2019-01-28] MEDS: INSULIN GLARGINE [LANTus] (100 UNITS/ML) SYG SC ×2 (08:14→21:01)
[2019-01-28] MEDS ORDERED: MIDAZOLAM 1 MG/ML 2 ML INJ (15:16)
[2019-01-28] MEDS ORDERED: ETOMIDATE 20 MG INJ (15:16)
[2019-01-28] MEDS ORDERED: PROPOFOL 20 ML (15:16)
[2019-01-28] MEDS ORDERED: LIDOCAINE 2% (SDV) 5 ML INJ (15:16)
[2019-01-28] MEDS ORDERED: FENTAnyl 50 MCG/ML VIAL (15:16)
[2019-01-28] MEDS: CEFTRIAXONE 2 GM/50 ML (PMX) 50 ML IVPB (17:03)
[2019-01-28] MEDS: TAMSULOSIN (SR) 0.4 MG CAP PO (20:07)
[2019-01-28] MEDS: ATORVASTATIN 40 MG TAB PO (20:08)
[2019-01-28] MEDS: CHOLECALCIFEROL 1,000 UNIT TAB PO (20:08)
[2019-01-29] MEDS: ACCU-CHEK XX (02:09)
[2019-01-29 05:52] LABS: ADD MAN DIFF? NO
[2019-01-29 05:58] LABS: BASOPHIL # 0.1 10^3/ul (0.0-0.1); BASOPHILS % 0.7 % (0.0-2.0); EOSINOPHILS # 0.3 10^3/ul (0.0-0.5); EOSINOPHILS % 1.8 % (0.0-7.0); HEMATOCRIT 37.4 % (42.0-52.0); LYMPHOCYTES # 1.4 10^3/ul (0.8-2.9); LYMPHOCYTES % 9.3 % (15.0-51.0); MEAN CORPUSCULAR HEMOGLOBIN 28.5 pg (29.0-33.0); MEAN CORPUSCULAR HGB CONC 34.8 g/dl (32.0-37.0); MEAN PLATELET VOLUME 11.3 fl (7.4-10.4); MONOCYTE # 0.9 10^3/ul (0.3-0.9); NEUTROPHIL # 11.6 10^3/ul (1.6-7.5); NEUTROPHILS % 77.3 % (39.0-77.0); PLATELET COUNT 203 10^3/UL (140-415); RED BLOOD COUNT 4.56 10^6/ul (4.70-6.10); RED CELL DISTRIBUTION WIDTH 14.1 % (11.5-14.5)
[2019-01-29 06:18] LABS: PHOSPHORUS 3.8 mg/dl (2.5-4.9)
[2019-01-29 06:18] LABS: MAGNESIUM 1.6 mg/dl (1.7-2.5)
[2019-01-29 06:30] LABS: ALANINE AMINOTRANSFERASE 51 IU/L (13-69); ALBUMIN 2.6 g/dl (3.3-4.9); ALBUMIN/GLOBULIN RATIO 0.78; ALKALINE PHOSPHATASE 94 IU/L (42-121); ANION GAP 6 (5-13); ASPARTATE AMINO TRANSFERASE 45 IU/L (15-46); BILIRUBIN,INDIRECT 0.5 mg/dl (0-1.1); BILIRUBIN,TOTAL 0.5 mg/dl (0.2-1.3); BLOOD UREA NITROGEN 22 mg/dl (7-20); CALCIUM 8.2 mg/dl (8.4-10.2); CARBON DIOXIDE 22 mmol/L (21-31); CHLORIDE 116 mmol/L (97-110); CREATININE 1.84 mg/dl (0.61-1.24); GLUCOSE 115 mg/dl (70-220); POTASSIUM 3.6 mmol/L (3.5-5.1); SODIUM 144 mmol/L (135-144); TOTAL PROTEIN 5.9 g/dl (6.1-8.1)
[2019-01-29] MEDS: SOD CHLORIDE 0.45% 1,000 ML IV ×2 (06:50→17:37)
[2019-01-29] MEDS: INSULIN ASPART [NOVOLOG] 3 ML PEN SC ×7 (07:34→20:54)
[2019-01-29] MEDS: DILTIAZEM (CD) 180 MG CAP PO (08:21)
[2019-01-29] MEDS: APIXABAN 5 MG TABLET PO ×2 (08:21→20:31)
[2019-01-29] MEDS: METOPROLOL (XL) 100 MG TAB PO (08:21)
[2019-01-29] MEDS: NICOTINE (21 MG/24 HR) PATCH TRANSDERM (08:22)
[2019-01-29] MEDS ORDERED: MAGNESIUM SULFATE 1 GM/D5W 100 ML IVPB (08:30)
[2019-01-29] MEDS: INSULIN GLARGINE [LANTus] (100 UNITS/ML) SYG SC ×2 (08:37→20:54)
[2019-01-29] MEDS: MAGNESIUM SULFATE 2 GM/50 ML 50 ML IVPB (09:13)
[2019-01-29] MEDS: POTASSIUM CHLORIDE (SR) 10 MEQ TAB PO (09:35)
[2019-01-29] MEDS: CEFTRIAXONE 2 GM/50 ML (PMX) 50 ML IVPB (16:58)
[2019-01-29] MEDS: CHOLECALCIFEROL 1,000 UNIT TAB PO (20:30)
[2019-01-29] MEDS: ATORVASTATIN 40 MG TAB PO (20:30)
[2019-01-29] MEDS: TAMSULOSIN (SR) 0.4 MG CAP PO (20:31)
[2019-01-30] MEDS: SOD CHLORIDE 0.45% 1,000 ML IV (00:16)
[2019-01-30] MEDS: ACCU-CHEK XX (02:20)
[2019-01-30 05:46] LABS: ADD MAN DIFF? NO
[2019-01-30 05:53] LABS: WHITE BLOOD COUNT 14.9 10^3/ul (4.8-10.8)
[2019-01-30 05:53] LABS: ABNORMAL IP MESSAGE 1; BASOPHIL # 0.1 10^3/ul (0.0-0.1); BASOPHILS % 0.7 % (0.0-2.0); EOSINOPHILS # 0.2 10^3/ul (0.0-0.5); EOSINOPHILS % 1.4 % (0.0-7.0); HEMATOCRIT 37.3 % (42.0-52.0); HEMOGLOBIN 12.8 g/dl (14.0-18.0); LYMPHOCYTES # 1.3 10^3/ul (0.8-2.9); LYMPHOCYTES % 8.9 % (15.0-51.0); MEAN CORPUSCULAR HEMOGLOBIN 28.3 pg (29.0-33.0); MEAN CORPUSCULAR HGB CONC 34.3 g/dl (32.0-37.0); MEAN CORPUSCULAR VOLUME 82.3 fl (82.0-101.0); MONOCYTE # 0.9 10^3/ul (0.3-0.9); MONOCYTES % 5.8 % (0.0-11.0); NEUTROPHIL # 11.6 10^3/ul (1.6-7.5); NEUTROPHILS % 77.9 % (39.0-77.0); PLATELET COUNT 199 10^3/UL (140-415); POSITIVE DIFF @See below; RED BLOOD COUNT 4.53 10^6/ul (4.70-6.10)
[2019-01-30 06:34] LABS: ALANINE AMINOTRANSFERASE 48 IU/L (13-69); ALBUMIN 2.7 g/dl (3.3-4.9); ALBUMIN/GLOBULIN RATIO 0.84; ALKALINE PHOSPHATASE 91 IU/L (42-121); ANION GAP 6 (5-13); ASPARTATE AMINO TRANSFERASE 40 IU/L (15-46); BILIRUBIN,INDIRECT 0.4 mg/dl (0-1.1); BILIRUBIN,TOTAL 0.4 mg/dl (0.2-1.3); BLOOD UREA NITROGEN 21 mg/dl (7-20); CALCIUM 8.2 mg/dl (8.4-10.2); CARBON DIOXIDE 25 mmol/L (21-31); CHLORIDE 110 mmol/L (97-110); CREATININE 1.79 mg/dl (0.61-1.24); GLUCOSE 165 mg/dl (70-220); MAGNESIUM 1.8 mg/dl (1.7-2.5); POTASSIUM 4.5 mmol/L (3.5-5.1); SODIUM 141 mmol/L (135-144); TOTAL PROTEIN 5.9 g/dl (6.1-8.1)
[2019-01-30] MEDS: INSULIN ASPART [NOVOLOG] 3 ML PEN SC ×7 (08:00→22:27)
[2019-01-30] MEDS: NICOTINE (21 MG/24 HR) PATCH TRANSDERM (08:04)
[2019-01-30] MEDS: METOPROLOL (XL) 100 MG TAB PO (08:05)
[2019-01-30] MEDS: DILTIAZEM (CD) 180 MG CAP PO (08:05)
[2019-01-30] MEDS: APIXABAN 5 MG TABLET PO ×2 (08:05→22:27)
[2019-01-30] MEDS: INSULIN GLARGINE [LANTus] (100 UNITS/ML) SYG SC ×2 (08:13→23:40)
[2019-01-30 08:19] LABS: ANISOCYTOSIS 1+ (0-0); BAND NEUTROPHILS #M 0.2 10^3/ul (0.0-0.6); BAND NEUTROPHILS % (M) 2 % (0-4); BURR CELLS 1+ (0-0); EOSINOPHILS % (M) 1 % (0-7); LYMPHOCYTES #M 0.5 10^3/ul (0.8-2.9); LYMPHOCYTES % (M) 4 % (15-51); MONOCYTE #M 0.5 10^3/ul (0.3-0.9); MONOCYTES % (M) 4 % (0-11); MYELOCYTES #M 0.2 10^3/ul (0.0-0.0); MYELOCYTES % (M) 2 % (0-0); PLATELET ESTIMATE NORMAL; POIKILOCYTOSIS 1+ (0-0); SEGMENTED NEUTROPHILS (M) % 87 % (39-77); SMUDGE%M 2 % (0-0)
[2019-01-30] MEDS: CEFTRIAXONE 2 GM/50 ML (PMX) 50 ML IVPB (16:43)
[2019-01-30] MEDS: ATORVASTATIN 40 MG TAB PO (22:27)
[2019-01-30] MEDS: CHOLECALCIFEROL 1,000 UNIT TAB PO (22:27)
[2019-01-30] MEDS: TAMSULOSIN (SR) 0.4 MG CAP PO (22:27)
[2019-01-31] MEDS: ACCU-CHEK XX (01:11)
[2019-01-31 05:55] LABS: ADD MAN DIFF? NO
[2019-01-31 05:59] LABS: BASOPHIL # 0.1 10^3/ul (0.0-0.1); BASOPHILS % 0.9 % (0.0-2.0); EOSINOPHILS # 0.2 10^3/ul (0.0-0.5); EOSINOPHILS % 1.2 % (0.0-7.0); HEMATOCRIT 37.8 % (42.0-52.0); LYMPHOCYTES # 1.3 10^3/ul (0.8-2.9); LYMPHOCYTES % 9.4 % (15.0-51.0); MEAN CORPUSCULAR HEMOGLOBIN 28.5 pg (29.0-33.0); MEAN CORPUSCULAR HGB CONC 34.4 g/dl (32.0-37.0); MEAN CORPUSCULAR VOLUME 82.9 fl (82.0-101.0); MEAN PLATELET VOLUME 11.3 fl (7.4-10.4); MONOCYTE # 0.9 10^3/ul (0.3-0.9); MONOCYTES % 6.1 % (0.0-11.0); NEUTROPHIL # 10.9 10^3/ul (1.6-7.5); PLATELET COUNT 212 10^3/UL (140-415); RED BLOOD COUNT 4.56 10^6/ul (4.70-6.10); RED CELL DISTRIBUTION WIDTH 13.9 % (11.5-14.5)
[2019-01-31 06:31] LABS: ALANINE AMINOTRANSFERASE 44 IU/L (13-69); ALBUMIN 2.9 g/dl (3.3-4.9); ALBUMIN/GLOBULIN RATIO 0.87; ALKALINE PHOSPHATASE 94 IU/L (42-121); ANION GAP 8 (5-13); ASPARTATE AMINO TRANSFERASE 37 IU/L (15-46); BILIRUBIN,INDIRECT 0.5 mg/dl (0-1.1); BILIRUBIN,TOTAL 0.5 mg/dl (0.2-1.3); BLOOD UREA NITROGEN 24 mg/dl (7-20); CALCIUM 8.9 mg/dl (8.4-10.2); CARBON DIOXIDE 24 mmol/L (21-31); CHLORIDE 111 mmol/L (97-110); CREATININE 1.69 mg/dl (0.61-1.24); GLUCOSE 117 mg/dl (70-220); MAGNESIUM 1.8 mg/dl (1.7-2.5); POTASSIUM 4.4 mmol/L (3.5-5.1); SODIUM 143 mmol/L (135-144); TOTAL PROTEIN 6.2 g/dl (6.1-8.1)
[2019-01-31 06:36] LABS: PHOSPHORUS 4.4 mg/dl (2.5-4.9)
[2019-01-31] MEDS: INSULIN ASPART [NOVOLOG] 3 ML PEN SC ×7 (08:00→21:00)
[2019-01-31] MEDS: DILTIAZEM (CD) 180 MG CAP PO (08:12)
[2019-01-31] MEDS: METOPROLOL (XL) 100 MG TAB PO (08:13)
[2019-01-31] MEDS: APIXABAN 5 MG TABLET PO ×2 (08:13→21:13)
[2019-01-31] MEDS: NICOTINE (21 MG/24 HR) PATCH TRANSDERM (08:14)
[2019-01-31] MEDS: INSULIN GLARGINE [LANTus] (100 UNITS/ML) SYG SC ×2 (08:45→21:47)
[2019-01-31] MEDS: CEFTRIAXONE 2 GM/50 ML (PMX) 50 ML IVPB (17:27)
[2019-01-31] MEDS: ATORVASTATIN 40 MG TAB PO (21:13)
[2019-01-31] MEDS: CHOLECALCIFEROL 1,000 UNIT TAB PO (21:13)
[2019-01-31] MEDS: TAMSULOSIN (SR) 0.4 MG CAP PO (21:13)
[2019-02-01] MEDS: ACCU-CHEK XX (02:00)
[2019-02-01 06:29] LABS: ADD MAN DIFF? NO
[2019-02-01 06:44] LABS: WHITE BLOOD COUNT 13.8 10^3/ul (4.8-10.8)
[2019-02-01 06:44] LABS: BASOPHIL # 0.1 10^3/ul (0.0-0.1); BASOPHILS % 0.8 % (0.0-2.0); EOSINOPHILS # 0.2 10^3/ul (0.0-0.5); EOSINOPHILS % 1.6 % (0.0-7.0); HEMATOCRIT 37.7 % (42.0-52.0); HEMOGLOBIN 12.8 g/dl (14.0-18.0); LYMPHOCYTES # 1.4 10^3/ul (0.8-2.9); LYMPHOCYTES % 10.4 % (15.0-51.0); MEAN CORPUSCULAR HEMOGLOBIN 28.4 pg (29.0-33.0); MEAN CORPUSCULAR VOLUME 83.6 fl (82.0-101.0); MEAN PLATELET VOLUME 11.2 fl (7.4-10.4); MONOCYTE # 0.9 10^3/ul (0.3-0.9); MONOCYTES % 6.6 % (0.0-11.0); NEUTROPHIL # 10.6 10^3/ul (1.6-7.5); NEUTROPHILS % 76.7 % (39.0-77.0); PLATELET COUNT 208 10^3/UL (140-415); RED BLOOD COUNT 4.51 10^6/ul (4.70-6.10); RED CELL DISTRIBUTION WIDTH 14.2 % (11.5-14.5)
[2019-02-01 07:39] LABS: ALANINE AMINOTRANSFERASE 50 IU/L (13-69); ALBUMIN/GLOBULIN RATIO 0.88; ALKALINE PHOSPHATASE 90 IU/L (42-121); ANION GAP 7 (5-13); ASPARTATE AMINO TRANSFERASE 36 IU/L (15-46); BILIRUBIN,INDIRECT 0.3 mg/dl (0-1.1); BILIRUBIN,TOTAL 0.3 mg/dl (0.2-1.3); BLOOD UREA NITROGEN 32 mg/dl (7-20); CALCIUM 8.7 mg/dl (8.4-10.2); CARBON DIOXIDE 26 mmol/L (21-31); CHLORIDE 108 mmol/L (97-110); GLUCOSE 140 mg/dl (70-220); MAGNESIUM 1.8 mg/dl (1.7-2.5); POTASSIUM 4.5 mmol/L (3.5-5.1); SODIUM 141 mmol/L (135-144); TOTAL PROTEIN 6.4 g/dl (6.1-8.1)
[2019-02-01] MEDS: INSULIN ASPART [NOVOLOG] 3 ML PEN SC ×7 (07:46→20:32)
[2019-02-01] MEDS: METOPROLOL (XL) 100 MG TAB PO (08:17)
[2019-02-01] MEDS: DILTIAZEM (CD) 180 MG CAP PO (08:17)
[2019-02-01] MEDS: APIXABAN 5 MG TABLET PO ×2 (08:17→20:27)
[2019-02-01] MEDS: NICOTINE (21 MG/24 HR) PATCH TRANSDERM ×2 (08:20→08:26)
[2019-02-01] MEDS: INSULIN GLARGINE [LANTus] (100 UNITS/ML) SYG SC ×2 (08:25→20:32)
[2019-02-01 09:08] LABS: PHOSPHORUS 3.9 mg/dl (2.5-4.9)
[2019-02-01] MEDS: CEFTRIAXONE 2 GM/50 ML (PMX) 50 ML IVPB (17:24)
[2019-02-01] MEDS: ATORVASTATIN 40 MG TAB PO (20:27)
[2019-02-01] MEDS: TAMSULOSIN (SR) 0.4 MG CAP PO (20:27)
[2019-02-01] MEDS: CHOLECALCIFEROL 1,000 UNIT TAB PO (20:27)
[2019-02-02] MEDS: ACCU-CHEK XX (02:00)
[2019-02-02] MEDS: INSULIN ASPART [NOVOLOG] 3 ML PEN SC ×7 (07:30→21:00)
[2019-02-02] MEDS: DILTIAZEM (CD) 180 MG CAP PO (08:28)
[2019-02-02] MEDS: METOPROLOL (XL) 100 MG TAB PO (08:28)
[2019-02-02] MEDS: APIXABAN 5 MG TABLET PO ×2 (08:29→20:41)
[2019-02-02] MEDS: NICOTINE (21 MG/24 HR) PATCH TRANSDERM (08:33)
[2019-02-02] MEDS: INSULIN GLARGINE [LANTus] (100 UNITS/ML) SYG SC ×2 (08:33→21:00)
[2019-02-02] MEDS ORDERED: SOD CHLORIDE 0.45% 1,000 ML IV (11:30)
[2019-02-02] MEDS: SOD CHLORIDE 0.45% 1,000 ML IV ×2 (11:48→20:00)
[2019-02-02] MEDS: CEFTRIAXONE 2 GM/50 ML (PMX) 50 ML IVPB (17:24)
[2019-02-02] MEDS: ATORVASTATIN 40 MG TAB PO (20:40)
[2019-02-02] MEDS: CHOLECALCIFEROL 1,000 UNIT TAB PO (20:40)
[2019-02-02] MEDS: TAMSULOSIN (SR) 0.4 MG CAP PO (21:38)
[2019-02-03] MEDS: ACCU-CHEK XX (02:00)
[2019-02-03] MEDS: SOD CHLORIDE 0.45% 1,000 ML IV (04:32)
[2019-02-03 05:54] LABS: ADD MAN DIFF? NO
[2019-02-03 05:59] LABS: BASOPHIL # 0.1 10^3/ul (0.0-0.1); BASOPHILS % 0.8 % (0.0-2.0); EOSINOPHILS # 0.2 10^3/ul (0.0-0.5); EOSINOPHILS % 1.6 % (0.0-7.0); HEMATOCRIT 38.4 % (42.0-52.0); HEMOGLOBIN 13.1 g/dl (14.0-18.0); LYMPHOCYTES # 1.4 10^3/ul (0.8-2.9); LYMPHOCYTES % 11.7 % (15.0-51.0); MEAN CORPUSCULAR HEMOGLOBIN 28.5 pg (29.0-33.0); MEAN CORPUSCULAR HGB CONC 34.1 g/dl (32.0-37.0); MEAN CORPUSCULAR VOLUME 83.5 fl (82.0-101.0); MEAN PLATELET VOLUME 11.1 fl (7.4-10.4); MONOCYTE # 0.7 10^3/ul (0.3-0.9); MONOCYTES % 5.9 % (0.0-11.0); NEUTROPHIL # 9.6 10^3/ul (1.6-7.5); NEUTROPHILS % 78.7 % (39.0-77.0); PLATELET COUNT 208 10^3/UL (140-415); RED CELL DISTRIBUTION WIDTH 13.9 % (11.5-14.5)
[2019-02-03 05:59] LABS: WHITE BLOOD COUNT 12.2 10^3/ul (4.8-10.8)
[2019-02-03 06:30] LABS: ALANINE AMINOTRANSFERASE 38 IU/L (13-69); ALKALINE PHOSPHATASE 86 IU/L (42-121); ANION GAP 6 (5-13); ASPARTATE AMINO TRANSFERASE 30 IU/L (15-46); BILIRUBIN,INDIRECT 0.5 mg/dl (0-1.1); BILIRUBIN,TOTAL 0.5 mg/dl (0.2-1.3); BLOOD UREA NITROGEN 27 mg/dl (7-20); CALCIUM 8.7 mg/dl (8.4-10.2); CARBON DIOXIDE 26 mmol/L (21-31); CHLORIDE 109 mmol/L (97-110); CREATININE 1.66 mg/dl (0.61-1.24); GLUCOSE 155 mg/dl (70-220); MAGNESIUM 1.7 mg/dl (1.7-2.5); PHOSPHORUS 4.3 mg/dl (2.5-4.9); POTASSIUM 4.4 mmol/L (3.5-5.1); SODIUM 141 mmol/L (135-144); TOTAL PROTEIN 6.3 g/dl (6.1-8.1)
[2019-02-03] MEDS: DILTIAZEM (CD) 180 MG CAP PO (07:52)
[2019-02-03] MEDS: APIXABAN 5 MG TABLET PO (07:53)
[2019-02-03] MEDS: METOPROLOL (XL) 100 MG TAB PO (07:53)
[2019-02-03] MEDS: INSULIN ASPART [NOVOLOG] 3 ML PEN SC ×6 (08:00→17:34)
[2019-02-03] MEDS: INSULIN GLARGINE [LANTus] (100 UNITS/ML) SYG SC (08:06)
[2019-02-03] MEDS: NICOTINE (21 MG/24 HR) PATCH TRANSDERM (08:13)
[2019-02-03] MEDS: CEFTRIAXONE 2 GM/50 ML (PMX) 50 ML IVPB (17:26)
== END 2019-02-03 18:18 | DRG 871 ==
LOC: 6WM 01-23 12:56 → E/R 09:52 → ICU 11:12
PROVIDERS: Internal Medicine
PROC: B24BZZZ Ultrasonography of Heart with Aorta (ICD-10-PCS; principal; 2019-01-28 15:20)
DX: A41.9 Sepsis, unspecified organism (principal); E11.10 Type 2 diabetes mellitus with ketoacidosis without coma; I50.23 Acute on chronic systolic (congestive) heart failure; I13.0 Hypertensive heart and chronic kidney disease with heart failure and stage 1 through stage 4 chronic kidney disease, or unspecified chronic kidney disease; N17.9 Acute kidney failure, unspecified; N39.0 Urinary tract infection, site not specified; I42.9 Cardiomyopathy, unspecified; R65.20 Severe sepsis without septic shock; N18.9 Chronic kidney disease, unspecified; E11.22 Type 2 diabetes mellitus with diabetic chronic kidney disease; N40.0 Benign prostatic hyperplasia without lower urinary tract symptoms; E78.5 Hyperlipidemia, unspecified; F17.200 Nicotine dependence, unspecified, uncomplicated; R19.7 Diarrhea, unspecified; I48.2 Chronic atrial fibrillation; Z95.2 Presence of prosthetic heart valve; R35.8 Other polyuria; N18.3 Chronic kidney disease, stage 3 (moderate); E11.40 Type 2 diabetes mellitus with diabetic neuropathy, unspecified; E11.65 Type 2 diabetes mellitus with hyperglycemia; B96.1 Klebsiella pneumoniae [K. pneumoniae] as the cause of diseases classified elsewhere; Z85.51 Personal history of malignant neoplasm of bladder; Z79.4 Long term (current) use of insulin
CPT/HCPCS: 36415; 71045; 74176; 76775; 80048; 80053; 81001; 81003; 82436; 82540; 82565; 82803; 82962; 83036; 83605; 83735; 83930; 83935; 84100; 84133; 84155; 84520; 84560; 85025; 86703; 86704; 86709; 86803; 87040-91; 87075; 87081; 87086; 87340; 93005; 93306; 93312; 97110; 97116; 97161; 97530; 99285-25